=== PATIENT | female | born 1980 | race Two or more races ===

== ENCOUNTER 2020-01-29 10:33 | Day surgery (SDC) | payer OTHER ==
[~2020-01-29 10:33] MED LIST: OBSTETRIX DHA1 EACH PO
== END 2020-01-29 17:30 | disposition home or self-care (01) ==
LOC: CIR.AMB 10:33
PROVIDERS: ATTEND Obstetrics & Gynecology
DX: O34.32 Maternal care for cervical incompetence, second trimester (principal); Z20.828 Contact with and (suspected) exposure to other viral communicable diseases

== ENCOUNTER 2020-05-08 13:08 | Outpatient (CLI) | payer OTHER | END 2020-05-08 14:26 | disposition home or self-care (01) | LOC: NST 13:08 | PROVIDERS: ATTEND Obstetrics & Gynecology | DX: Z34.83 Encounter for supervision of other normal pregnancy, third trimester (principal) ==

== ENCOUNTER 2020-06-15 10:32 | Outpatient (CLI) | payer OTHER | END 2020-06-15 10:55 | disposition home or self-care (01) | LOC: NST 10:32 | PROVIDERS: ATTEND Obstetrics & Gynecology Maternal & Fetal Medicine | DX: Z34.83 Encounter for supervision of other normal pregnancy, third trimester (principal) ==

== ENCOUNTER 2020-08-04 10:48 | Outpatient (CLI) | payer OTHER | END 2020-08-04 11:35 | disposition home or self-care (01) | LOC: NST 10:48 | PROVIDERS: ATTEND Obstetrics & Gynecology Maternal & Fetal Medicine | DX: Z34.83 Encounter for supervision of other normal pregnancy, third trimester (principal) ==

== ENCOUNTER 2020-08-04 12:00 | Inpatient (IN) | payer OTHER ==
[~2020-08-04] VITALS: Ht 157.5 cm; Wt 2.7 kg
[2020-08-14] MEDS ORDERED: SUMATRIPTAN SUC50 MG (16:39)
[2020-08-14] MEDS ORDERED: SIMVASTATIN20 MG (16:40)
== END 2020-08-17 12:36 | disposition home or self-care (01) | DRG 785 ==
LOC: SURG-SUITE 08-14 11:30 → O/R 08-14 11:30 → OB/GYN 08-14 12:00 → SURG-SUITE 08-14 17:49
PROVIDERS: ADMIT Obstetrics & Gynecology; ATTEND Obstetrics & Gynecology
PROC: 0UB70ZZ Excision of Bilateral Fallopian Tubes, Open Approach (ICD-10-PCS; 2020-08-14)
PROC: 0UCC7ZZ Extirpation of Matter from Cervix, Via Natural or Artificial Opening (ICD-10-PCS; 2020-08-14)
PROC: 4A1HXFZ Monitoring of Products of Conception, Cardiac Rhythm, External Approach (ICD-10-PCS; 2020-08-14)
PROC: 10D00Z1 Extraction of Products of Conception, Low, Open Approach (ICD-10-PCS; principal; 2020-08-14 14:00)
DX: O34.211 Maternal care for low transverse scar from previous cesarean delivery (principal); O99.824 Streptococcus B carrier state complicating childbirth; Z30.2 Encounter for sterilization; Z3A.39 39 weeks gestation of pregnancy; Z37.0 Single live birth